=== PATIENT | male | born 1955 | race Caucasian/White ===

== ENCOUNTER 2018-02-17 06:11 | Day surgery (SDC) | payer OTHER ==
[~2018-02-17] VITALS: Ht 175.3 cm; Wt 104.3 kg
[2018-02-17] MEDS ORDERED: SIMVASTATIN20 MG PO (06:32)
--- NOTE | 2018-02-17 08:03 | NUR ---
02/17/18 0803 Bebe Moran 0757 PT ARRIVED IN PACU SLEEPY WITH NO C/O'S. ABD SOFT.
--- NOTE | 2018-02-17 11:59 | NUR ---
PT SITTING IN BED-ALERT, ORIENTED AND SUPPORTED BY HIS SANA. PT IN FOR ROUTINE SCOPE, SEEMED TO DEAL WITH PREP APPROPRIATELY. STAFF IN WE FINISHED UP-EXTENDED A BLESSING. WILL FOLLOW NEEDED
--- NOTE | 2018-02-18 11:56 | OR ---
[facility] [address] [place], [place] [address] Signed DATE OF OPERATION: 02/17/2018 SURGEON: Iván Esposito MD PREOPERATIVE DIAGNOSIS: History of hyperplastic polyp, 2009. POSTOPERATIVE DIAGNOSIS: Small polyp at splenic flexure (excised), otherwise normal. PROCEDURE: Total colonoscopy to cecum with cold morcellation polypectomy x1. ANESTHESIA: Intravenous sedation, fentanyl 100 mcg, Versed 4 mg. INDICATION: This 62-year-old white man is a patient of Dr. Cornelius and known to me from the past having undergone colonoscopy in 2009, at which time he was found to have a hyperplastic polyp. His other medical issues including vertigo and sleep apnea, but has had no colon symptoms. He is here for surveillance colonoscopy, understand the risks of bleeding, infection, and perforation. FINDINGS: The prep was excellent. Complete colonoscopy was undertaken to the cecum. There was no sign of diverticular formation, colitis, or cancer. He did have one small polyp at the splenic flexure area, which was excised completely with cold morcellation technique. DESCRIPTION OF PROCEDURE: The patient was brought to the endoscopy suite and placed in lateral decubitus position, given intravenous sedation to the point of slurred speech and nystagmus. Digital rectal examination was normal. An Olympus video colonoscope was passed in the rectum and manipulated throughout the colon ultimately intubating the cecum itself. The ileocecal valve and appendiceal orifice were normal. The scope was withdrawn from that point. Examination undertaken showed no sign of abnormality until approximately the splenic flexure, where a small sessile polyp was noted. This was excised with cold morcellation technique. The scope was further withdrawn. The remaining colon was normal including retroflexed view of the rectum. The scope was removed and the patient was taken to recovery room in good Electronically Signed By: IVÁN ESPOSITO MD 02/18/18 1156 PATIENT NAME: GAYLA HERNADEZ OPERATIVE REPORT DATE OF : 59 REPORT #: [id number] PHYSICIAN: IVÁN ESPOSITO MD PCP: NARINDER CORNELIUS MD REPORT IS CONFIDENTIAL AND NOT TO BE RELEASED WITHOUT AUTHORIZATION [facility] [address] [place], [place] [address] Signed condition. CONCLUDING DIAGNOSIS: Small polyp at splenic flexure, completely excised. PLAN: Recommend repeat colonoscopy in 5 to 7 years, sooner if clinically indicated. He will return to the ongoing care of Dr. Cornelius. Iván Esposito MD JM/MODL /[id number] cc: Narinder Cornelius MD Copies: NARINDER CORNELIUS MD ~ Electronically Signed By: IVÁN ESPOSITO MD 02/18/18 1156 PATIENT NAME: GAYLA HERNADEZ OPERATIVE REPORT DATE OF : 59 REPORT #: [id number] PHYSICIAN: IVÁN ESPOSITO MD PCP: NARINDER CORNELIUS MD REPORT IS CONFIDENTIAL AND NOT TO BE RELEASED WITHOUT AUTHORIZATION
== END 2018-02-17 08:30 | disposition home or self-care (01) ==
LOC: OPS 06:11 → DS 06:11 → OPS 06:45 → DS 13:00 → OPS 13:00
PROVIDERS: Surgery
PROC: 0DBL8ZZ Excision of Transverse Colon, Via Natural or Artificial Opening Endoscopic (ICD-10-PCS; principal; 2018-02-17 06:45)
DX: Z12.11 Encounter for screening for malignant neoplasm of colon (principal); D12.3 Benign neoplasm of transverse colon; G47.30 Sleep apnea, unspecified; R42 Dizziness and giddiness; Z86.010 Personal history of colon polyps; Z99.89 Dependence on other enabling machines and devices
CPT/HCPCS: 99153; G0500; J2250; J3010

== ENCOUNTER 2023-12-09 07:12 | Day surgery (SDC) | payer MEDICARE, OTHER ==
[~2023-12-09] VITALS: Ht 175.3 cm; Wt 109.1 kg
[~2023-12-09 07:12] MED LIST: ADULT LOW DOSE81 MG PO; CALCITONIN-SAL3.7 ML NAS; IBLOOD GLUCOSE TEST STRIP 1 EA TEST VI PRN; LACTATED RINGER'S 1,000 ML IV SCH; LIDOCAINE HCL 1% 5 ML SDV INJ ONE; MIDAZOLAM HCL 5 MG/5 ML VIAL IV PRN; SIMVASTATIN20 MG PO; TAMSULOSIN HCL0.4 MG PO; fentaNYL citrate 100 MCG/2 ML VIAL IV PRN
[2023-12-09 07:26] VITALS: BP 144/75
--- NOTE | 2023-12-09 07:26 | NUR ---
ROUNDS. PT RECEIVING NURSING CARE DID NOT INTERRUPT. PROVIDED PRAYER.
[2023-12-09] MEDS ORDERED: FINASTERIDE5 MG PO (07:33)
[2023-12-09] MEDS ORDERED: CEFAZOLIN SODIUM 2 GM/20 ML SYR IV SCH (07:46)
[2023-12-09] MEDS ORDERED: MIDAZOLAM HCL 5 MG/5 ML VIAL ONE (08:16)
[2023-12-09] MEDS ORDERED: fentaNYL citrate 100 MCG/2 ML VIAL ONE (08:16)
--- NOTE | 2023-12-09 09:05 | NUR ---
12/09/23 0905 Ela Jaimes PATIENT ARRIVES IN PACU AWAKE AND TALKING WITH ME.
--- NOTE | 2023-12-09 16:40 | OR ---
[facility] [address] [place], [place] [address] Signed DATE OF OPERATION: 12/09/2023 SURGEON: Iván Esposito MD PREOPERATIVE DIAGNOSIS: History of tubular adenoma at splenic flexure in 2018. POSTOPERATIVE DIAGNOSIS: Polyp at 80 cm (excised). PROCEDURE: Total colonoscopy to cecum with cold morcellation polypectomy x1. ANESTHESIA: Intravenous sedation, fentanyl 100 mcg and Versed 5 mg. INDICATIONS: This 68-year-old white man is a patient of Dr. Alicia Burkett. He is known to me from the past having undergone colonoscopy approximately five years ago in 2018, at which time he had a small polyp at the splenic flexure, which was excised and found to be a tubular adenoma. He currently has no symptoms of bleeding, diarrhea, or constipation and no family history of colon cancer. He understands the risk of colonoscopy for surveillance including but not limited to bleeding, infection, and perforation and wished to proceed. FINDINGS: The prep was excellent. Complete colonoscopy was undertaken to the cecum. Withdrawal of the mucosa behind the ileocecal valve was required for full inspection of the cecum. There was no sign of polyp there. There was a small polyp at 80 cm from the anal verge, which was excised with cold morcellation technique. He had a few scattered diverticula of the sigmoid and left colon, but it was not extensive by any means. DESCRIPTION OF PROCEDURE: The patient was brought to the endoscopy suite and placed in lateral decubitus position given intravenous sedation to the point of slurred speech and nystagmus. Digital rectal examination was normal. An Olympus video colonoscope was passed into the rectum and manipulated throughout the colon, ultimately intubating visualization of the cecum. Actual full intubation of the cecum was not forthcoming despite various efforts to do so. It was well visualized Electronically Signed By: IVÁN ESPOSITO MD 12/09/23 [facility] PATIENT NAME: GAYLA HERNADEZ OPERATIVE REPORT DATE OF : 59 REPORT #: [id number] PHYSICIAN: IVÁN ESPOSITO MD PCP: ALICIA BURKETT MD REPORT IS CONFIDENTIAL AND NOT TO BE RELEASED WITHOUT AUTHORIZATION [facility] [address] [place], [place] [address] Signed except behind the ileocecal valve and on that basis a biopsy forceps was used to elevate the mucosa behind the ileocecal valve to assure no sign of polyp, there was none. The scope was then withdrawn. Examination showed no sign of abnormality until approximately 80 cm from the anal verge, where a small adenomatous appearing polyp was noted, this was excised completely with cold morcellation technique. Further withdrawal demonstrated a few diverticula. Retroflexed view of the rectum was normal. The scope was removed, and the patient was taken to the recovery room in good condition, having suffered no complications. CONCLUDING DIAGNOSIS: Polyp at 80 cm (excised). PLAN: Recommend repeat colonoscopy in 5 years or sooner if clinically indicated. He will return to the ongoing care of Dr. Alicia Burkett. MD SERGIO Dc/GAGANDEEP /[id number] cc: Alicia Burkett MD Copies: ALICIA BURKETT DMD ~ Electronically Signed By: IVÁN ESPOSITO MD 12/09/23 1640 PATIENT NAME: GAYLA HERNADEZ OPERATIVE REPORT DATE OF : 59 REPORT #: [id number] PHYSICIAN: IVÁN ESPOSITO MD PCP: ALICIA BURKETT MD REPORT IS CONFIDENTIAL AND NOT TO BE RELEASED WITHOUT AUTHORIZATION
--- NOTE | 2023-12-11 05:59 | PATH ---
[facility] [address] [place], [place] [address] Signed SPECIMEN(S): A COLON POLYP AT 80 CM SPECIMEN SOURCE: A. COLON POLYP AT 80 CM CLINICAL HISTORY: History of polyps, diverticulosis FINAL PATHOLOGIC DIAGNOSIS: Colon, 80 cm, polypectomy: - Tubular adenoma BRP MICROSCOPIC EXAMINATION: Histologic sections of all submitted blocks are examined by light microscopy. These findings, together with the gross examination, support the pathologic diagnosis. GROSS DESCRIPTION: The specimen, labeled and designated "Brandt, colon polyp at 80 cm," is received in formalin and consists of three vann soft tissue fragments, ranging from 0.2-0.4 cm. Entirely submitted in (A1). VB (under the direct supervision of a pathologist) The Gross Description was prepared using a voice recognition system. The report was reviewed for accuracy; however, sound-alike word errors, addition and/or deletions may occur. If there is any question about this report, please contact Client Services. ADDITIONAL NOTES: Immunohistochemical and/or in situ hybridization studies if performed in this case included appropriate positive controls that reacted as expected. This test was developed and its performance characteristics determined by [facility]. It has not been cleared or approved by the U.S. Food and Drug Administration. The FDA has determined that such clearance or approval is not necessary. This test is used for clinical purposes. It should not be regarded as investigational or for research. [facility] is certified under the Clinical Laboratory Improvement Amendments of 1988 (CLIA) as qualified to perform high complexity clinical laboratory testing. PATIENT NAME: GAYLA HERNADEZ PATHOLOGY DATE OF : 59 REPORT #: [id number] PHYSICIAN: DAYANNA MANRIQUE PCP: ALICIA BURKETT MD REPORT IS CONFIDENTIAL AND NOT TO BE RELEASED WITHOUT AUTHORIZATION [facility] [address] [place] [address] Signed PERFORMING LABORATORY: Technical component was performed by [facility], [address] [place] [address] (CLIA# [id number]). Professional interpretation was performed by [facility] [address] [id number] Diagnostician: Duong Jimenez MD Pathologist Electronically Signed 12/10/2023 Copies: ~ PATIENT NAME: GAYLA HERNADEZ PATHOLOGY DATE OF : 59 REPORT #: [id number] PHYSICIAN: DAYANNA MANRIQUE PCP: ALICIA BURKETT MD REPORT IS CONFIDENTIAL AND NOT TO BE RELEASED WITHOUT AUTHORIZATION
== END 2023-12-09 09:30 | disposition home or self-care (01) ==
LOC: DS 07:12 → OPS 07:12 → DS 08:15 → OPS 09:30
PROVIDERS: ATTEND Surgery
PROC: 0DBE8ZZ Excision of Large Intestine, Via Natural or Artificial Opening Endoscopic (ICD-10-PCS; principal; 2023-12-09 08:15)
DX: Z12.11 Encounter for screening for malignant neoplasm of colon (principal); M62.00 Separation of muscle (nontraumatic), unspecified site; K57.30 Diverticulosis of large intestine without perforation or abscess without bleeding; D12.6 Benign neoplasm of colon, unspecified
CPT/HCPCS: 99153; G0500; J0690; J2250; J3010; J7121

== ENCOUNTER 2025-07-30 12:19 | Emergency (ER) | payer MEDICARE, OTHER ==
[~2025-07-30] VITALS: Ht 177.8 cm; Wt 104.3 kg
[~2025-07-30 12:19] MED LIST changes: +FINASTERIDE5 MG PO; -IBLOOD GLUCOSE TEST STRIP 1 EA TEST VI PRN; -LACTATED RINGER'S 1,000 ML IV SCH; -LIDOCAINE HCL 1% 5 ML SDV INJ ONE; -MIDAZOLAM HCL 5 MG/5 ML VIAL IV PRN; -fentaNYL citrate 100 MCG/2 ML VIAL IV PRN
[2025-07-30] MEDS ORDERED: ATIVAN1 MG PO (13:08)
[2025-07-30] MEDS ORDERED: LORazepam 1 MG TAB PO ONE (13:15)
[2025-07-30 13:23] VITALS: BP 166/82
== END 2025-07-30 13:24 | disposition home or self-care (01) ==
LOC: ED 12:19
DX: F43.0 Acute stress reaction (principal); I10 Essential (primary) hypertension; E78.00 Pure hypercholesterolemia, unspecified; Z79.82 Long term (current) use of aspirin; Z79.899 Other long term (current) drug therapy
CPT/HCPCS: 99283; A9270-GY